=== PATIENT | female | born 1955 | race Caucasian/White ===

== ENCOUNTER 2023-11-06 07:43 | Outpatient (CLI) | payer MEDICARE, SELFPAY ==
--- NOTE | ~2023-11-06 | CT_ITS ---
EXAMINATION: CT LE LT wo/w con DATE: 11/06/2023 08:28 INDICATION: Localized swelling, mass and lump, left lower limb. TECHNIQUE: Computed tomography (CT) of the left lower limb was performed without and with 100 mL Omni paque 350 intravenous contrast. Automated exposure control and iterative reconstruction technique wer e employed. The dose-length product was 1207.08 mGy-cm. COMPARISON: Pelvis and left hip radiographs 08/07/2022 FINDINGS: Bone alignment is normal. No fracture. There is mild left hip osteoarthritis. There is a to manuel left knee arthroplasty without patellar resurfacing in near-anatomic alignment. No fracture. No p eriprosthetic lucency to suggest loosening or infection. There are osteophytes of the patella. There is a small left knee joint effusion. There is a 5.1 x 3.0 x 1.2 cm lipoma in left rectus femoris musc le. IMPRESSION: 1. Total left knee arthroplasty in near-anatomic alignment. 2. Small left knee joint effusion. 3. Small left hip osteoarthritis. 4. Lipoma in left rectus femoris muscle. Reviewed, dictated and finalized at location E.
[2023-11-06 08:15] LABS: Estimated Glomerular Filt Rate > 60
== END 2023-11-06 07:44 | disposition home or self-care (01) ==
PROVIDERS: Visit Provider Physician Assistant Medical
DX: M25.462 Effusion, left knee (principal); M17.12 Unilateral primary osteoarthritis, left knee; D17.24 Benign lipomatous neoplasm of skin and subcutaneous tissue of left leg; Z96.652 Presence of left artificial knee joint
CPT/HCPCS: 73702; Q9967